=== PATIENT | male | born 1940 | race Caucasian/White ===

== ENCOUNTER 2022-10-18 18:34 | Emergency (ER) | payer MEDICARE, OTHER, SELFPAY ==
--- NOTE | ~2022-10-18 | XR_ITS ---
EXAM: XR ribs LT 2V DATE: 10/18/2022 19:07 HISTORY: Fell backwards today. Pain to anterior rib level 8-10 . COMPARISON: None available. FINDINGS: Decreased mineralization. No fracture or dislocation. No lytic or blastic lesion. Visualiz ed lung parenchyma is clear. IMPRESSION: No acute osseous finding in the left ribs. Reviewed, dictated and finalized at location K.
--- NOTE | ~2022-10-18 | XR_ITS ---
EXAM: XR elbow LT 2V DATE: 10/18/2022 19:07 HISTORY: Fell today. Posterior elbow pain. . COMPARISON: None available. FINDINGS: Normal mineralization. No fracture or dislocation. No lytic or blastic lesion. Moderate de generative change in the left elbow joint. Acromial tip enthesopathy. Displaced anterior fat pad. No erosion or periosteal change. Posterior soft tissue swelling over the proximal ulna. IMPRESSION: No definite acute fracture identified. Left elbow joint effusion which may be secondary t o moderate degenerative change or occult injury, commonly occult radial head fractures in a patient o f this age. Reviewed, dictated and finalized at location K. IMPRESSION: No definite acute fracture identified. Left elbow joint effusion wh ich may be secondary to moderate degenerative change or occult injury, commonly occult radial head fractures in a patient of this age.
[2022-10-18 18:47] VITALS: BP 145/88; PULSE 82; RESP 18; TEMP 36.6; O2SAT 100
--- NOTE | 2022-10-18 19:23 | ED.BACK ---
HPI - Back Pain/Injury General Chief Complaint: Back Pain/Injury Stated Complaint: fall rib pain History of Present Illness HPI Narrative: Pt is a 82 y/o male, presents to with left rib pain and left elbow injury/abrasion after she he tripped and fell, landing on the left arm. Jarring his left ribs. He denies hitting his head or LOC and he has no neck or back pain. He is not taking any OTC medications for pain relief. Tetanus is UTD (<3 years ago) Related Data Allergies Allergy/AdvReac Type Severity Reaction Status Date / Time Sulfa (Sulfonamide Allergy scab on Verified 03/27/13 13:18 Antibiotics) foreskin and it swelled up real big Review of Systems Musculoskeletal: Musculoskeletal: Reports as per HPI Integumentary/Breasts: Skin/Breast: Reports as per HPI Exam Const: General: healthy appearing, no acute distress and alert Nutritional Appearance: well nourished Orientation/consciousness: patient oriented x3 Limitations: no limitations HENMT: Head: normal to inspection Ears: external ears normal Face and sinus: normal facial exam Mouth: Yes Normal oral and palatal mucosa present and Yes lip normal Teeth and gingiva: dentition normal Throat: posterior oropharynx normal and uvula midline Eyes: Conjunctivae: conjunctivae normal EOM: EOMs intact bilaterally Neck: Neck: normal visual inspection, no lymphadenopathy and no meningeal signs Resp: Effort & Inspection: normal respiratory effort Auscultation: clear to auscultation bilaterally Cardio: Rate: regular rate Rhythm: regular rhythm Back/Spine/Pelvis: Other: no C T or L spine point tenderness, no step offs left anterior chest wall is TTP. No crepitus or subq emphysema Skin: Other: left elbow has a linear abrasion with scant bleeding over the left elbow. Mild swelling, no ecchymosis no deformity Distal PMS Intact Neuro: General: patient oriented x3, moves all extremities, no meningeal signs, no focal motor deficits and CN's II-XI intact bilaterally Cranial nerves: Yes Nystagmus not present Speech: normal speech Gait exam (Neuro): Normal gait present Extrem: Other: see above Course Course Emergency Course: imaging unremarkable for acute fracture. Plan to treat with RICE, APAP, support chest wall when coughing or movement. See PCP at NH in one week if symptoms are not improving, sooner if healing concerns arise. Level of Care: Express Care Visit ([id number]) Vital Signs Vital signs: Vital Signs Temperature 36.6 C 10/18/22 18:47 Pulse Rate 82 10/18/22 18:47 Respiratory Rate 18 10/18/22 18:47 Blood Pressure 145/88 H 10/18/22 18:47 Pulse Oximetry 100 10/18/22 18:47 Oxygen Delivery Room Air 10/18/22 18:47 Temperature 36.6 C 10/18/22 18:47 Pulse Rate 82 10/18/22 18:47 Respiratory Rate 18 10/18/22 18:47 Blood Pressure 145/88 H 10/18/22 18:47 Pulse Oximetry 100 10/18/22 18:47 Oxygen Delivery Room Air 10/18/22 18:47 MDM - Back Pain/Injury MDM Narrative Medical decision making narrative: wound cleaning, renetta wrap, imaging results discussed, FU with PCP stressed. Differential Diagnosis Differential diagnosis: Likely other (elbow fracture, abrasion, rib fracture, contusion, sprain, strain) Discharge Plan Discharge Clinical Impression: Contusion of elbow Qualifiers: Encounter type: initial encounter Laterality: left Qualified Code(s): S50.02XA - Contusion of left elbow, initial encounter Abrasion of elbow, left Qualifiers: Encounter type: initial encounter Qualified Code(s): S50.312A - Abrasion of left elbow, initial encounter Contusion of rib on left side Qualifiers: Encounter type: initial encounter Qualified Code(s): S20.212A - Contusion of left front wall of thorax, initial encounter Patient Disposition: Home, Self-Care Condition: Stable Instructions: Antibiotic Form, Abrasion (ED), Rib Contusion (ED) Additional Instructions: KEEP WOUND CLEAN AND DRY,
== END 2022-10-18 19:37 | disposition home or self-care (01) ==
PROVIDERS: Emergency Provider Nurse Practitioner Family; PCP Internal Medicine
DX: S50.02XA Contusion of left elbow, initial encounter (principal); S20.212A Contusion of left front wall of thorax, initial encounter; S50.312A Abrasion of left elbow, initial encounter; W01.0XXA Fall on same level from slipping, tripping and stumbling without subsequent striking against object, initial encounter
CPT/HCPCS: 71100; 73070; 99204; G0463

== ENCOUNTER 2022-10-22 08:21 | Emergency (ER) | payer MEDICARE, OTHER, SELFPAY ==
--- NOTE | ~2022-10-22 | XR_ITS ---
EXAMINATION: XR wrist LT min 3V DATE: 10/22/2022 08:52 INDICATION: Left wrist swelling TECHNIQUE: Posteroanterior, ulnar deviation, oblique, and lateral views of the left wrist were obtain ed. COMPARISON: None available FINDINGS: Bone alignment is normal. No fracture is identified. There is moderate osteoarthritis at th e triscaphe and first carpometacarpal joints as well as the radiocarpal joints. There is soft tissue swelling of the wrist. No displaced fracture is identified. IMPRESSION: 1. Osteoarthritis without acute osseous abnormality. Reviewed, dictated and finalized at location A.
[2022-10-22 08:38] VITALS: BP 135/75; PULSE 74; RESP 16; TEMP 35.9; O2SAT 100
--- NOTE | 2022-10-22 09:24 | ED.GENADULT ---
HPI - General Adult General Chief complaint: Extremity Injury, Upper Stated complaint: wants lt wrist xray Source: patient Mode of arrival: ambulatory Limitations: no limitations History of Present Illness HPI narrative: Patient presents for evaluation of bruising to left wrist. He was seen here on 10/18 after he fell, injuring his left elbow and left ribs the process. X-rays were performed of the ribs and left elbow during that visit and were negative for fracture. He does have an effusion noted to the left elbow. He denies any pain in the left wrist but states that there is bruising and he wanted to ensure there is no fracture. He is right-hand dominant. No loss of range of motion. He has an abrasion noted to the left elbow that has been draining a small amount of serous fluid. Onset (ago): day(s) Related Data Home Medications Medication Instructions Recorded Confirmed No Home Medications 10/22/22 10/22/22 Allergies Allergy/AdvReac Type Severity Reaction Status Date / Time Sulfa (Sulfonamide Allergy Severe scab on Verified 10/22/22 09:18 Antibiotics) foreskin and it swelled up real big Review of Systems Review of Systems: CONSTITUTIONAL: Denies fever, chills, or sweats. EYES: Denies visual changes, redness, or discharge. ENT: Denies rhinorrhea, congestion, sore throat, or otalgia. CARDIOVASCULAR: Denies chest pain, palpitations, or edema. RESPIRATORY: Denies cough or dyspnea. GASTROINTESTINAL: Denies abdominal pain, nausea, vomiting, or diarrhea. GENITOURINARY: Denies dysuria or hematuria. SKIN: Reports bruising to left wrist. Reports abrasions to the left elbow. MUSCULOSKELETAL: Reports left elbow pain. Denies loss of range of motion. Reports pain in left ribs. Denies any left wrist pain. NEUROLOGIC: Denies headache, numbness, dizziness, or weakness. PSYCHIATRIC: Denies anxiety or depression. [facility] Past Medical History Medical History Osteoarthritis Surgical History Surgical History History of knee replacement Family History Family History Mother Family history non-contributory Social History Social History Smoking status: Never smoker Substance use: never Living arrangements: with family Gender identity (if verbalized by the patient): Male Sexual Orientation (if Verbalized by the Patient): Straight or Heterosexual Spiritual care concerns: No Exam Narrative: GENERAL: Well-appearing, well-nourished, and in no acute distress. HEAD: Normocephalic, atraumatic. EYES: PERRLA and EOMI. ENT: Nares clear, no rhinorrhea or epistaxis. Mucous membranes moist. Oropharynx without tonsillar hypertrophy exudate or other lesions. Bilateral TMs pearly lopes nonbulging NECK: Supple. No adenopathy or masses. No carotid bruits or JVD CHEST: Clear to auscultation. No respiratory distress. No wheezes rales or rhonchi HEART: Regular rate and rhythm. No murmur heard. Normal peripheral pulses. ABDOMEN: Soft, nontender, nondistended, normal active bowel sounds. EXTREMITIES: Full range of motion of the left wrists. No crepitus or deformity. Small amount of swelling in the left wrist. There is swelling in the left elbow with associated tenderness but no decreased range of motion. SKIN: Bruising to left wrist. Abrasions to left elbow draining a small amount of serous drainage. NEURO: No focal deficits. Alert and oriented x3. PSYCH: Normal mood and affect. Course Course Emergency Course: Patient presents for evaluation of left wrist bruising. There is no tenderness on exam. X-ray negative for fracture. [id number] agents for symptom management. Advised on RICE therapy. Follow up with primary provider. Go to the ER for wo
== END 2022-10-22 09:32 | disposition home or self-care (01) ==
PROVIDERS: Emergency Provider Nurse Practitioner; PCP Internal Medicine
DX: S66.912A Strain of unspecified muscle, fascia and tendon at wrist and hand level, left hand, initial encounter (principal); W19.XXXA Unspecified fall, initial encounter; M19.032 Primary osteoarthritis, left wrist
CPT/HCPCS: 73110; 99213; G0463

== ENCOUNTER 2023-08-19 11:54 | Emergency (ER) | payer MEDICARE, OTHER, SELFPAY ==
[2023-08-19 12:06] VITALS: BP 123/70; PULSE 98; RESP 20; TEMP 36.6; O2SAT 100
--- NOTE | 2023-08-19 12:20 | ED.GENADULT ---
HPI - General Adult General Chief complaint: Abdominal Pain Stated complaint: stomach issues Source: patient and family Mode of arrival: ambulatory Limitations: no limitations History of Present Illness HPI narrative: Patient presents for evaluation of abdominal pain and diarrhea for the last 4 days. He states he is having bowel movements every 30 minutes. He states his abdominal pain is ?20? on a scale of 1-10. He cannot provide me with a descriptive quality to the pain. Reports fever, chills, nausea without vomiting. No history of similar symptoms. No new foods, recent antibiotic use, or specific sick contacts to his knowledge. He has taken Pepto-Bismol and Imodium for symptoms. He is not sure when his last colonoscopy was. He reports a chronic cough and SOB. Related Data Home Medications Medication Instructions Recorded Confirmed Asthma Inhaler See Rx Instructions .Route .COMPLEX 08/19/23 albuterol sulfate 90 mcg/actuation 2 puff inhalation QID PRN sob 08/19/23 08/19/23 aerosol inhaler Allergies Allergy/AdvReac Type Severity Reaction Status Date / Time Sulfa (Sulfonamide Allergy Severe scab on Verified 08/19/23 12:00 Antibiotics) foreskin and it swelled up real big Review of Systems Review of Systems: CONSTITUTIONAL: Reports fever and chills. EYES: Denies visual changes, redness, or discharge. ENT: Denies rhinorrhea, congestion, sore throat, or otalgia. CARDIOVASCULAR: Denies chest pain, palpitations, or edema. RESPIRATORY: Reports chronic cough and SOB GASTROINTESTINAL: Reports abdominal pain, nausea and diarrhea. Denies vomiting GENITOURINARY: Denies dysuria or hematuria. SKIN: Denies rash or itching. MUSCULOSKELETAL: Denies back pain, joint pain, or myalgia. NEUROLOGIC: Denies headache, numbness, dizziness, or weakness. PSYCHIATRIC: Denies anxiety or depression. [facility] Past Medical History Medical History Asthma Osteoarthritis Surgical History Surgical History History of knee replacement Family History Family History Mother Family history non-contributory Social History Social History Smoking status: Never smoker Substance use: never Living arrangements: with family Gender identity (if verbalized by the patient): Male Sexual Orientation (if Verbalized by the Patient): Straight or Heterosexual Spiritual care concerns: No Exam Narrative: GENERAL: Well-appearing, well-nourished, and in no acute distress. HEAD: Normocephalic, atraumatic. EYES: PERRLA and EOMI. ENT: Nares clear, no rhinorrhea or epistaxis. Mucous membranes moist. Oropharynx without tonsillar hypertrophy exudate or other lesions. Bilateral TMs pearly lopes nonbulging NECK: Supple. No adenopathy or masses. No carotid bruits or JVD CHEST: Clear to auscultation. Cough present on exam. No respiratory distress. No wheezes rales or rhonchi HEART: Regular rate and rhythm. No murmur heard. Normal peripheral pulses. ABDOMEN: Soft, nondistended, normal active bowel sounds. Nontender but guarding abdomen. EXTREMITIES: Normal range of motion. No edema. SKIN: Warm, dry, no rash. NEURO: No focal deficits. Alert and oriented x3. PSYCH: Normal mood and affect. Course Course Emergency Course: This is an 83-year-old male who presented for evaluation of abdominal pain and diarrhea. Flu and COVID were negative. I recommended he go to the hospital for further evaluation. He was agreeable. [facility] is his facility of choice. I contacted [facility] Emergency Department and spoke with RN, Augustin. He indicated that Dr. Angel would accept pt for transfer there. Level of Care: Express Care Visit Vital Signs Vital signs: Vital Signs Temper
== END 2023-08-19 12:40 | disposition short-term general hospital (02) ==
PROVIDERS: Emergency Provider Nurse Practitioner; PCP Internal Medicine
DX: R19.7 Diarrhea, unspecified (principal); R10.84 Generalized abdominal pain; Z20.822 Contact with and (suspected) exposure to COVID-19; J45.909 Unspecified asthma, uncomplicated; M19.90 Unspecified osteoarthritis, unspecified site
CPT/HCPCS: 87426; 87804; 99213; G0463